=== PATIENT | female | born 1950 | race Hispanic/Latino ===

== ENCOUNTER 2018-10-04 16:21 | Emergency (ER) | payer MEDICARE ==
[~2018-10-04 16:21] MED LIST: ASPI-1005 PO; CARV3.12 PO; ISOS30TA6 PO; LOSA50TA64 PO; METF-446 PO; MULT1TAB70 PO; NITR0.4T SL
[2018-10-04 17:28] LABS: BASOPHILS % (AUTO) 0.7 % (0.0-5.0); EOSINOPHILS % (AUTO) 1.6 % (0.0-8.0); HEMATOCRIT 35.9 % (36-48); LYMPHOCYTES % (AUTO) 31.5 % (21.0-51.0); MEAN CORPUSCULAR HEMOGLOBIN 30.6 pg (27.0-33.0); MEAN CORPUSCULAR HGB CONC 33.5 g/dL (32.0-36.0); MEAN CORPUSCULAR VOLUME 91.4 fL (79-99); MONOCYTES % (AUTO) 8.6 % (3.0-13.0); NEUTROPHILS % (AUTO) 57.6 % (40.0-77.0); NUCLEATED RED BLOOD CELLS 0.1 % (0.0-0.19); PLATELET COUNT (AUTO) 187 K/uL (130-400); RED BLOOD CELL COUNT(AUTO) 3.93 MIL/uL (4.00-5.50); WHITE BLOOD COUNT (AUTO) 5.8 K/uL (4.8-10.8)
[2018-10-04 17:43] LABS: INR 0.84 (0.85-1.15); PROTHROMBIN TIME 8.9 SEC (9.6-11.6)
[2018-10-04 17:47] LABS: CREATININE 1.5 mg/dL (0.5-1.5); POTASSIUM 3.8 mmol/L (3.5-5.1)
[2018-10-04 18:01] LABS: ALBUMIN 2.9 g/dL (3.5-5.0); BILIRUBIN,TOTAL 0.2 mg/dL (0.2-1.0); CRP QUANTITATIVE 21.9 mg/L (0.00-9.0); THYROID STIMULATING HORMONE 4.06 uIU/mL (0.36-3.74); TOTAL PROTEIN, SERUM 6.6 g/dL (6.0-8.3)
[2018-10-04 18:10] LABS: PARTIAL THROMBOPLASTIN TIME 27.9 SEC (26.3-35.5)
[2018-10-04 18:27] LABS: ERYTHROCYTE SEDIMENTATION RATE 50 MM/HR (0-30)
[2018-10-04] MEDS ORDERED: TRAMADOL HCL 50 MG TABLET ONE (18:34)
[2018-10-04 19:14] LABS: APPEARANCE,URINE Cloudy (CLEAR); BILIRUBIN,URINE Negative (NEGATIVE); COLOR,URINE Yellow (YELLOW); GLUCOSE, URINE (UA) >=1000 mg/dL (NEGATIVE); KETONES,URINE Negative (NEGATIVE); LEUKOCYTE ESTERASE ,URINE Moderate (NEGATIVE); NITRATE,URINE Positive (NEGATIVE); OCCULT BLOOD,URINE Trace (NEGATIVE); PROTEIN,URINE 300 mg/dL (NEGATIVE); UROBILINOGEN,URINE 0.2 mg/dL (0.2-1.0)
[2018-10-04 19:26] LABS: BACTERIA,URINE Many /HPF (None Seen); RBC,URINE 0-1 /HPF (0-1); SQUAMOUS EPITHELIAL CELL,UR Rare /HPF (0-2); WBC,URINE >100 /HPF (0-1)
[2018-10-04] MEDS ORDERED: CLINDAMYCIN HCL 150 MG CAP ONE (20:31)
[2018-10-04] MEDS ORDERED: LEVOFLOXACIN 500 MG TABLET ONE (20:31)
== END 2018-10-04 21:26 | disposition home or self-care (01) ==
LOC: EDH 16:21
DX: N39.0 Urinary tract infection, site not specified (principal); L03.032 Cellulitis of left toe; R20.2 Paresthesia of skin; E03.9 Hypothyroidism, unspecified; I10 Essential (primary) hypertension; E78.5 Hyperlipidemia, unspecified; E11.9 Type 2 diabetes mellitus without complications; I25.10 Atherosclerotic heart disease of native coronary artery without angina pectoris; Z88.8 Allergy status to other drugs, medicaments and biological substances; Z87.442 Personal history of urinary calculi
CPT/HCPCS: 36415; 71045; 73630; 80053; 81001; 82550; 84443; 84484; 85025; 85610; 85651; 85730; 86140; 87077; 87088; 87186; 93005

== ENCOUNTER 2018-10-19 13:41 | Emergency (ER) | payer OTHER, MEDICARE ==
[2018-10-19 14:06] LABS: EOSINOPHILS % (AUTO) 1.3 % (0.0-8.0); HEMATOCRIT 36.9 % (36-48); LYMPHOCYTES % (AUTO) 25.6 % (21.0-51.0); MEAN CORPUSCULAR HEMOGLOBIN 30.3 pg (27.0-33.0); MEAN CORPUSCULAR HGB CONC 33.6 g/dL (32.0-36.0); MEAN CORPUSCULAR VOLUME 90.2 fL (79-99); MONOCYTES % (AUTO) 5.8 % (3.0-13.0); NEUTROPHILS % (AUTO) 66.3 % (40.0-77.0); PLATELET COUNT (AUTO) 216 K/uL (130-400); RED BLOOD CELL COUNT(AUTO) 4.09 MIL/uL (4.00-5.50); RED CELL DISTRIBUTION WIDTH 13.4 % (11.0-15.5); WHITE BLOOD COUNT (AUTO) 6.2 K/uL (4.8-10.8)
[2018-10-19] MEDS ORDERED: ASPIRIN 325 MG TABLET ONE (14:09)
[2018-10-19 14:18] LABS: INR 0.93 (0.85-1.15); PARTIAL THROMBOPLASTIN TIME 28.7 SEC (26.3-35.5); PROTHROMBIN TIME 9.8 SEC (9.6-11.6)
[2018-10-19 14:22] LABS: ALBUMIN 2.9 g/dL (3.5-5.0); BILIRUBIN,TOTAL 0.4 mg/dL (0.2-1.0); CREATININE 1.4 mg/dL (0.5-1.5); POTASSIUM 4.1 mmol/L (3.5-5.1); TOTAL PROTEIN, SERUM 6.9 g/dL (6.0-8.3)
[2018-10-19 14:24] LABS: B-TYPE NATRIURETIC PEPTIDE 145 pg/mL (0-100)
[2018-10-19] MEDS ORDERED: INSULIN HUMULIN R 100 UNIT/ML 3ML ONE (14:36)
[2018-10-19] MEDS ORDERED: SODIUM CHLORIDE 0.9% 1000ML 1,000 ML IV ONE (14:36)
== END 2018-10-19 17:11 | disposition home or self-care (01) ==
LOC: EDH 13:41
DX: E11.65 Type 2 diabetes mellitus with hyperglycemia (principal); R07.9 Chest pain, unspecified; R53.1 Weakness; E78.5 Hyperlipidemia, unspecified; I10 Essential (primary) hypertension; I25.10 Atherosclerotic heart disease of native coronary artery without angina pectoris; Z87.442 Personal history of urinary calculi; Z87.891 Personal history of nicotine dependence
CPT/HCPCS: 36415; 70450; 71045; 80053; 82550; 83880; 84484; 85025; 85610; 85730; 93005; 96361; 96374; 99285; J1815; J7030

== ENCOUNTER 2018-12-21 14:28 | Observation (INO) | payer OTHER, MEDICARE ==
[~2018-12-21] VITALS: Ht 162.6 cm; Wt 74.4 kg
[2018-12-21] MEDS ORDERED: SODIUM CHLORIDE 0.9% 1000ML 1,000 ML IV ONE ×3 (14:55→22:37)
[2018-12-21] MEDS ORDERED: ACETAMINOPHEN EXTRA STRENGTH 500 MG TABLET ONE (14:56)
[2018-12-21 15:36] LABS: APPEARANCE,URINE SL CLOUDY (CLEAR); BASOPHILS % (AUTO) 0.7 % (0.0-5.0); BILIRUBIN,URINE NEGATIVE (NEGATIVE); COLOR,URINE YELLOW (YELLOW); EOSINOPHILS % (AUTO) 1.8 % (0.0-8.0); GLUCOSE, URINE (UA) >=1000 mg/dL (NEGATIVE); HEMATOCRIT 34.7 % (36-48); KETONES,URINE NEGATIVE (NEGATIVE); LEUKOCYTE ESTERASE ,URINE NEGATIVE (NEGATIVE); LYMPHOCYTES % (AUTO) 25.5 % (21.0-51.0); MEAN CORPUSCULAR HEMOGLOBIN 30.8 pg (27.0-33.0); MEAN CORPUSCULAR VOLUME 90.5 fL (79-99); MONOCYTES % (AUTO) 8.5 % (3.0-13.0); NEUTROPHILS % (AUTO) 63.5 % (40.0-77.0); NITRATE,URINE NEGATIVE (NEGATIVE); OCCULT BLOOD,URINE TRACE-LYSED (NEGATIVE); PH,URINE 5.5 (5.0-8.0); PLATELET COUNT (AUTO) 167 K/uL (130-400); PROTEIN,URINE 100 mg/dL (NEGATIVE); RED BLOOD CELL COUNT(AUTO) 3.83 MIL/uL (4.00-5.50); RED CELL DISTRIBUTION WIDTH 13.3 % (11.0-15.5); UROBILINOGEN,URINE 0.2 mg/dL (0.2-1.0); WHITE BLOOD COUNT (AUTO) 6.1 K/uL (4.8-10.8)
[2018-12-21 15:56] LABS: ALBUMIN 2.6 g/dL (3.5-5.0); BILIRUBIN,TOTAL 0.2 mg/dL (0.2-1.0); CREATININE 1.4 mg/dL (0.5-1.5); POTASSIUM 4.4 mmol/L (3.5-5.1); TOTAL PROTEIN, SERUM 6.4 g/dL (6.0-8.3)
[2018-12-21 15:59] LABS: RAPID GROUP A STREP NEGATIVE (NEGATIVE)
[2018-12-21 16:00] LABS: WBC,URINE 0-1 /HPF (0-1)
[2018-12-21 16:01] LABS: BACTERIA,URINE Moderate /HPF (None Seen); SQUAMOUS EPITHELIAL CELL,UR Rare /HPF (0-2)
[2018-12-21 16:02] LABS: INR 0.86 (0.85-1.15); PARTIAL THROMBOPLASTIN TIME 25.2 SEC (26.3-35.5); PROTHROMBIN TIME 9.1 SEC (9.6-11.6)
[2018-12-21] MEDS ORDERED: ASPIRIN 81MG TAB.CHEW ONE (16:38)
[2018-12-21] MEDS ORDERED: NITROGLYCERIN 1GM/1 INCH PACKET TD ONE (16:38)
[2018-12-21] MEDS ORDERED: ACETAMINOPHEN 325 MG TAB PO PRN ×2 (19:30)
[2018-12-21] MEDS ORDERED: ONDANSETRON HCL 4 MG/2 ML VIAL IV PRN (19:30)
[2018-12-21] MEDS ORDERED: GUAIFENESIN-DM 200/20 MG 10 ML PO PRN (19:30)
[2018-12-21] MEDS ORDERED: NITROGLYCERIN 1GM/1 INCH PACKET TD SCH (19:45)
[2018-12-21] MEDS ORDERED: HYDRALAZINE HCL 20 MG/ML VIAL IV PRN (19:45)
[2018-12-21] MEDS ORDERED: CEFTRIAXONE SODIUM 1 GM IVP SCH (19:45)
[2018-12-21] MEDS ORDERED: SODIUM CHLORIDE 0.9% 1000ML 1,000 ML IV SCH (19:45)
[2018-12-21] MEDS ORDERED: IPRATROPIUM/ALBUTEROL SULFATE 3 ML SOLUTION IH PRN (19:45)
[2018-12-21] MEDS ORDERED: INSULIN HUMULIN R 100 UNIT/ML 3ML SQ SCH (21:00)
[2018-12-21] MEDS ORDERED: FAMOTIDINE 20MG TAB 20 MG TAB PO SCH (21:00)
[2018-12-21] MEDS ORDERED: HYDRALAZINE HCL 20 MG/ML VIAL ONE (22:35)
[2018-12-21] MEDS ORDERED: GUAIFENESIN-DM 200/20 MG 10 ML ONE (22:36)
[2018-12-21] MEDS ORDERED: FAMOTIDINE 20MG TAB 20 MG TAB ONE (22:36)
[2018-12-21] MEDS ORDERED: CEFTRIAXONE SODIUM 1 GM ONE (22:36)
[2018-12-21] MEDS ORDERED: CLONIDINE HCL 0.1 MG TABLET ONE (23:25)
[2018-12-21] MEDS ORDERED: INSULIN HUMULIN R 100 UNIT/ML 3ML ONE (23:26)
[2018-12-22 00:14] VITALS: BP 147/69
[2018-12-22] MEDS ORDERED: CLONIDINE HCL 0.1 MG TABLET PO PRN (00:45)
[2018-12-22] MEDS ORDERED: MORPHINE SULFATE 2 MG/ML 1ML SYG IVP PRN (00:45)
[2018-12-22 04:04] LABS: BASOPHILS % (AUTO) 0.7 % (0.0-5.0); EOSINOPHILS % (AUTO) 2.6 % (0.0-8.0); HEMATOCRIT 31.2 % (36-48); LYMPHOCYTES % (AUTO) 38.6 % (21.0-51.0); MEAN CORPUSCULAR HEMOGLOBIN 31.4 pg (27.0-33.0); MEAN CORPUSCULAR HGB CONC 35.1 g/dL (32.0-36.0); MEAN CORPUSCULAR VOLUME 89.3 fL (79-99); MONOCYTES % (AUTO) 9.1 % (3.0-13.0); NUCLEATED RED BLOOD CELLS 0.1 % (0.0-0.19); PLATELET COUNT (AUTO) 155 K/uL (130-400); RED BLOOD CELL COUNT(AUTO) 3.49 MIL/uL (4.00-5.50); RED CELL DISTRIBUTION WIDTH 12.9 % (11.0-15.5); WHITE BLOOD COUNT (AUTO) 6.4 K/uL (4.8-10.8)
[2018-12-22 04:10] VITALS: BP 130/59
[2018-12-22 04:10] LABS: HEMOGLOBIN A1C 11.3 % (4.0-6.0)
[2018-12-22 04:18] LABS: ALBUMIN 2.3 g/dL (3.5-5.0); BILIRUBIN,TOTAL 0.2 mg/dL (0.2-1.0); CREATININE 1.1 mg/dL (0.5-1.5); POTASSIUM 3.5 mmol/L (3.5-5.1); TOTAL PROTEIN, SERUM 5.6 g/dL (6.0-8.3)
[2018-12-22 06:27] LABS: TROPONIN I 0.95 ng/mL (0.00-0.06)
--- NOTE | 2018-12-22 07:30 | NUR ---
AM ASSESSMENT PT SITTING IN BED, JUST RETURNED FROM [facility]. A/O X 3. NO SOB. NO DISTRESS NOTED. DENIES CHEST PAIN OR DISCOMFORT. DENIES PALPITATIONS. TELE: SR 70s. DENIES N/V AND/OR DIARRHEA. 0.9% NACL INFUSING @ 75 ML/HR. BR W/BRP. RUE WEAKNESS. UP W/ASSISTANCE. INSTRUCTED TO CALL FOR ASSISTANCE. CALL BHARGAVI W/IN REACH.
[2018-12-22 07:50] VITALS: BP 177/89
--- NOTE | 2018-12-22 08:30 | NUR ---
MD NOTIFICATION DR RODRIGUEZ NOTIFIED PT LEFT AMA.
[2018-12-22] MEDS ORDERED: ASPIRIN 81MG TAB.CHEW PO SCH (09:00)
--- NOTE | 2018-12-23 08:12 | NUR ---
STATUS PT @ NURSE'S STATION ASKING FOR NURSE. WALKED W/PT BACK TO RM 232. PT WANTING TO LEAVE, DOESN'T WANT FOR DOCTORS TO COME. REMINDED PT HER LAB RESULTS, TROPONINS, WERE ELEVATED AND WATER RESOURCE ENGINEERING SPECIALIST IS PENDING TO SEE HER TODAY. PT RESPONDS, "I DON'T CARE. I WANT TO GO HOME. I'M NOT GOING TO BE ABLE TO STAND SEEING HER ALL DAY (REFERRING TO [facility] PCP). I'M GOING TO GET UPSET EVERY TIME I SEE HER AFTER WHAT HAPPENED THIS MORNING." EXPLAINED TO PT IF SHE WERE TO LEAVE RIGHT NOW IT WOULD BE CONSIDERED AMA. INFORMED PT SHE WOULD BE RESPONSIBLE IF ANYTHING WERE TO HAPPEN TO HER, MENTIONED HEART ATTACK AND . PT RESPONDED, "I'LL TAKE MY CHANCES. I DON'T WANT TO BE SEEING HER ALL DAY." PT IS CRYING @ THIS TIME. SUGGESTED TO PT CHANGING PCP. PT DECLINED SUGGESTION. INSISTED ON GOING HOME. STATED SHE WOULD F/U W/DR RAM. AMA FORM BROUGHT IN & REVIEWED W/ PT. AMA FORM SIGNED BY PT @ [id number]. TELE SHORTY REMOVED BY PT EARLIER. IV DISCONTINUED @ THIS TIME. PT TO CALL FAMILY FOR RIDE HOME.
--- NOTE | 2018-12-23 08:25 | NUR ---
DISCHARGE NOTIFIED BY PT SHE IS READY TO GO HOME. WALKED W/PT TO HOSPITAL MAIN ENTRANCE. REMINDED PT TO PLEASE F/U W/ELECTRIC ENGINE MECHANIC.
== END 2018-12-22 08:25 | disposition left against medical advice (07) ==
LOC: EDH 14:28 → EDHIP 19:27 → INTOOBSV 19:27 → 2AH 23:10
PROVIDERS: ADMIT Internal Medicine; ATTEND Internal Medicine
DX: I21.4 Non-ST elevation (NSTEMI) myocardial infarction (principal); A41.9 Sepsis, unspecified organism; E43 Unspecified severe protein-calorie malnutrition; I25.10 Atherosclerotic heart disease of native coronary artery without angina pectoris; I16.0 Hypertensive urgency; H92.03 Otalgia, bilateral; R53.0 Neoplastic (malignant) related fatigue; I10 Essential (primary) hypertension; E78.5 Hyperlipidemia, unspecified; E11.65 Type 2 diabetes mellitus with hyperglycemia; E66.9 Obesity, unspecified; Z53.29 Procedure and treatment not carried out because of patient's decision for other reasons; Z87.442 Personal history of urinary calculi; Z95.1 Presence of aortocoronary bypass graft; Z79.82 Long term (current) use of aspirin; Z79.899 Other long term (current) drug therapy; Z88.8 Allergy status to other drugs, medicaments and biological substances; Z68.28 Body mass index [BMI] 28.0-28.9, adult
CPT/HCPCS: 36415 ×2; 71045; 80053 ×2; 80061; 81001; 82150; 82550 ×2; 82948 ×3; 83036; 83605 ×2; 83874; 84484 ×3; 85025 ×2; 85610; 85730; 87040 ×2; 87088; 87804 ×2; 87880; 93005 ×3; 94664; 99284; G0378 ×13; J0360; J0696; J1815; J7030 ×3

== ENCOUNTER 2019-08-05 16:24 | Emergency (ER) | payer OTHER, MEDICARE ==
[2019-08-05] MEDS ORDERED: LORAZEPAM 2 MG/ML 1 ML VIAL ONE (17:27)
[2019-08-05 17:54] LABS: BASOPHILS % (AUTO) 0.8 % (0.0-5.0); EOSINOPHILS % (AUTO) 1.6 % (0.0-8.0); HEMATOCRIT 34.8 % (36-48); LYMPHOCYTES % (AUTO) 23.7 % (21.0-51.0); MEAN CORPUSCULAR HEMOGLOBIN 30.1 pg (27.0-33.0); MEAN CORPUSCULAR HGB CONC 33.3 g/dL (32.0-36.0); MEAN CORPUSCULAR VOLUME 90.2 fL (79-99); NEUTROPHILS % (AUTO) 66.4 % (40.0-77.0); PLATELET COUNT (AUTO) 218 K/uL (130-400); RED BLOOD CELL COUNT(AUTO) 3.86 MIL/uL (4.00-5.50); RED CELL DISTRIBUTION WIDTH 13.2 % (11.0-15.5); WHITE BLOOD COUNT (AUTO) 6.2 K/uL (4.8-10.8)
[2019-08-05 18:07] LABS: CREATININE 1.4 mg/dL (0.5-1.5); POTASSIUM 4.3 mmol/L (3.5-5.1)
[2019-08-05 18:09] LABS: INR 0.89 (0.85-1.15); PARTIAL THROMBOPLASTIN TIME 23.8 SEC (26.3-35.5); PROTHROMBIN TIME 9.7 SEC (9.6-11.6)
[2019-08-05 18:13] LABS: BILIRUBIN,TOTAL 0.2 mg/dL (0.2-1.0); TOTAL PROTEIN, SERUM 6.3 g/dL (6.0-8.3)
== END 2019-08-05 19:03 | disposition home or self-care (01) ==
LOC: EDH 16:24
DX: I10 Essential (primary) hypertension (principal); R51 Headache; F41.9 Anxiety disorder, unspecified
CPT/HCPCS: 36415; 71045; 80053; 82550; 84484; 85025; 85610; 85730; 93005; 96374; 99285; J2060